=== PATIENT | female | born 1955 | race Caucasian/White ===

== ENCOUNTER 2022-03-02 09:24 | Day surgery (SDC) | payer OTHER ==
[~2022-03-02] VITALS: Ht 162.6 cm; Wt 63.5 kg
[2022-03-02] MEDS ORDERED: diphenhydrAMINE 50 MG/ML VIAL ONE (10:05)
[2022-03-02] MEDS ORDERED: fentaNYL citrate 0.05 MG/ML VIAL ONE (10:06)
[2022-03-02] MEDS ORDERED: MIDAZOLAM 5 MG/5 ML VIAL ONE (10:06)
[2022-03-02] MEDS ORDERED: LIDOCAINE 2% 100 MG/5 ML UJET TP ONE (10:06)
[2022-03-02] MEDS ORDERED: MIDAZOLAM 2 MG/2 ML VIAL IVP ONE (10:55)
[2022-03-02] MEDS ORDERED: fentaNYL citrate 0.05 MG/ML VIAL IVP ONE (10:55)
[2022-03-02] MEDS ORDERED: diphenhydrAMINE 50 MG/ML VIAL IVP ONE (11:00)
== END 2022-03-02 11:18 | disposition home or self-care (01) ==
LOC: MMU 09:24 → MOR 09:24
PROVIDERS: ATTEND Internal Medicine Gastroenterology
DX: R19.5 Other fecal abnormalities (principal); K63.5 Polyp of colon; Z79.899 Other long term (current) drug therapy; Z20.822 Contact with and (suspected) exposure to COVID-19
CPT/HCPCS: 45380; 87426; J1200; J2250; J3010